=== PATIENT | female | born 1965 | race Caucasian/White ===

== ENCOUNTER 2022-08-28 22:56 | Emergency (ER) | payer BC ==
[2022-08-28] MEDS ORDERED: traMADol 50 MG Tab PO ONE (22:57)
[2022-08-28 23:44] LABS: ESTIMATED GFR 86 mL/min (>60)
[2022-08-28] MEDS ORDERED: Iopamidol 755 Mg/ML 75 ML Bottle IV ONE (23:45)
== END 2022-08-29 01:45 | disposition home or self-care (01) ==
LOC: FB.ED 22:56
DX: K81.9 Cholecystitis, unspecified (principal); I10 Essential (primary) hypertension
CPT/HCPCS: 36415; 74177; 80053; 81001; 83690; 85025; 99284; A9270; Q9967